=== PATIENT | male | born 1985 | race Caucasian/White ===

== ENCOUNTER 2020-03-14 08:32 | Emergency (ER) | payer BC, SELFPAY ==
[2020-03-14 08:40] VITALS: BP 146/94; PULSE 78; RESP 20; TEMP 36.9; O2SAT 100
--- NOTE | 2020-03-14 08:51 | ED.GENADULT ---
HPI - General Adult General Chief complaint: Skin/Abscess/Foreign Body Stated complaint: sore on back of neck Time Seen by Provider: 03/14/20 08:52 Source: patient and RN notes reviewed Mode of arrival: ambulatory Limitations: no limitations History of Present Illness HPI narrative: 35-year-old male presents with complaints of right lower posterior neck with redness, tenderness, and swelling for the past 2 days. Prid with some relief. Tender to touch. Some drainage. No fever or chills. No abdominal pain. Remains active. The patient reports he have not been diagnosed with COVID-19. The patient reports he is not waiting for the results of a COVID-19 lab test. The patient reports he do not have fever, chills, weakness, fatigue, myalgia, or facial swelling. The patient reports he do not have a new or worsening cough or shortness of breath. Denies chest pain. The patient reports he do not have any rhinorrhea, congestion, sore throat, and abdominal pain. Tolerating po intake well. Denies recent traveling. Denies concerns for COVID-19 or exposures been home since [id number] order except for essential household needs and return home. At this time, patient is not suspected of having COVID-19. Complains of diarrhea, nausea, and vomiting for 1 day. One episode of emesis and diarrhea without abdominal pain. No treatment. Gregg says he was outside having his 5 year-old daughter's birthday libertarian yesterday. History of ulcers. No abdominal pain or cramping. Exacerbating factors consist of eating and drinking. Tolerating po intake well, actively drinking an extra large drink at this visit. LBM this morning at 04:00 which was watery diarrhea. Denies fever or chills. Denies headache, dizziness, back pain, dysuria, and blood in stool. Some parts of this dictation were generated by voice recognition software and may contain typographical and/or grammatical inaccuracies. Related Data Home Medications Medication Instructions Recorded Confirmed meloxicam 15 mg PO TID 03/14/20 03/14/20 Allergies Allergy/AdvReac Type Severity Reaction Status Date / Time No Known Allergies Allergy Verified 03/14/20 09:04 Review of Systems Review of Systems: Narrative: CONSTITUTIONAL: Denies fever, chills, sweats. EYES: Denies visual changes, redness, discharge. ENT: Denies rhinorrhea, congestion, sore throat, otalgia. CARDIOVASCULAR: Denies chest pain, palpitations, edema. RESPIRATORY: Denies dyspnea, wheezing, cough. GASTROINTESTINAL: Denies abdominal pain. Complains of nausea, vomiting, diarrhea. GENITOURINARY: Denies dysuria, hematuria, abnormal discharge. SKIN: Denies rash or itching. Right posterior lower neck with redness, tenderness, swelling, and drainage. MUSCULOSKELETAL: Denies acute back pain, joint pain, or myalgia. NEUROLOGIC: Denies numbness or focal weakness. PSYCHIATRIC: Denies anxiety or depression. All systems reviewed & are unremarkable except as noted in HPI and below. FORMERLY [facility] Past Medical History Medical History Anxiety Chronic back pain History of gastroesophageal reflux (GERD) Stress at home Surgical History Surgical History (Updated 03/14/20 @ 09:25 by LUI Pal) History of endoscopy Noted 3 ulcers History of tonsillectomy History of tympanostomy Family History Family History (Updated 03/14/20 @ 09:25 by LUI Pal) Father Unknown family medical history Mother Diabetes mellitus Grandparent Diabetes mellitus Social History Social History (Updated 03/14/20 @ 09:28 by LUI Pal) Smoking packs per day: 1.5 Smoking cigarettes per day: 30.0 Years smoked: 20 Smoking pack-years: 30.00 Smoking status: Current every day smoker Tobacco type: cigarettes Alcohol intake: current Substance use: current Substance use type: marijuana Last use: Daily Living arrangements: with family Occupation/Education: unemployed Gender identity
== END 2020-03-14 09:10 | disposition home or self-care (01) ==
PROVIDERS: Emergency Provider Nurse Practitioner Family; PCP Internal Medicine
DX: K52.9 Noninfective gastroenteritis and colitis, unspecified (principal); K21.9 Gastro-esophageal reflux disease without esophagitis; F17.210 Nicotine dependence, cigarettes, uncomplicated; R03.0 Elevated blood-pressure reading, without diagnosis of hypertension
CPT/HCPCS: 99203; G0463

== ENCOUNTER 2020-06-28 11:40 | Emergency (ER) | payer BC, SELFPAY ==
--- NOTE | ~2020-06-28 | XR_ITS ---
EXAMINATION: XR finger 4th RT min 2V DATE: 06/28/2020 12:11 INDICATION: Right hand fourth digit injury and pain. TECHNIQUE: 4 views of right hand fourth digit were obtained. COMPARISON: None. FINDINGS: There is a nondisplaced chip avulsion fracture of palmar base of fourth middle phalanx. Anabell nt spaces are normal. IMPRESSION: 1. Nondisplaced chip avulsion fracture of palmar base of fourth middle phalanx. Reviewed, dictated and finalized at location A.
[2020-06-28 11:42] VITALS: BP 114/74; PULSE 73; RESP 16; TEMP 37.1; O2SAT 100
--- NOTE | 2020-06-28 12:03 | ED.UPPEXIN ---
HPI - Extremity Injury (Upper) General Chief Complaint: Extremity Injury, Upper Stated Complaint: Right hand finger injury Time Seen by Provider: 06/28/20 11:50 Source: patient and RN notes reviewed History of Present Illness HPI narrative: Patient is a 35-year-old male who presents the urgent care with complaints of a right finger injury. Patient reports that he hit the fourth digit, bending it backwards, 1 falling down the stairs yesterday. Patient states is become more swollen and difficulty to bend. States that he has been using ibuprofen for the pain. No other acute complaints or injuries from the fall. Denies of hitting his head or any loss of consciousness. No acute distress noted. Patient aware of the plan of care. Some parts of this dictation were generated by voice recognition software and may contain typographical and/or grammatical inaccuracies. Related Data Home Medications Medication Instructions Recorded Confirmed No Home Medications 06/28/20 06/28/20 Allergies Allergy/AdvReac Type Severity Reaction Status Date / Time No Known Allergies Allergy Verified 06/28/20 11:53 Review of Systems Review of Systems: Narrative: CONSTITUTIONAL: Denies fever, chills, or sweats. EYES: Denies visual changes, redness, or discharge. ENT: Denies rhinorrhea, congestion, sore throat, or otalgia. CARDIOVASCULAR: Denies chest pain, palpitations, or edema. RESPIRATORY: Denies cough or dyspnea. GASTROINTESTINAL: Denies abdominal pain, nausea, vomiting, or diarrhea. GENITOURINARY: Denies dysuria or hematuria. SKIN: Denies rash or itching. MUSCULOSKELETAL: Denies back pain, joint pain, or myalgia. NEUROLOGIC: Denies headache, numbness, or weakness. PSYCHIATRIC: Denies anxiety or depression. All other systems reviewed are negative, except as documented in HPI. [facility] Past Medical History Medical History Anxiety Chronic back pain History of gastroesophageal reflux (GERD) Stress at home Surgical History Surgical History (Updated 03/14/20 @ 09:25 by LUI Pal) History of endoscopy Noted 3 ulcers History of tonsillectomy History of tympanostomy Family History Family History (Updated 03/14/20 @ 09:25 by LUI Pal) Father Unknown family medical history Mother Diabetes mellitus Grandparent Diabetes mellitus Social History Social History (Updated 03/14/20 @ 09:28 by LUI Pal) Smoking packs per day: 1.5 Smoking cigarettes per day: 30.0 Years smoked: 20 Smoking pack-years: 30.00 Smoking status: Current every day smoker Tobacco type: cigarettes Alcohol intake: current Substance use: current Substance use type: marijuana Last use: Daily Gender identity (if verbalized by the patient): Male Comments At the time of my signature, I reviewed and agree with the nursing past medical, surgical, social, and family history. There is no relevant family history pertinent to the patient complaint. Exam Narrative: Exam Narrative: GENERAL: This is a well-nourished, well-developed patient, in no apparent distress. HEAD: normocephalic, atraumatic. EYES: PERRL. Sclera clear/white. Vision is grossly intact. EARS: External ears normal NOSE: External nose normal with no obvious nasal discharge, nares without redness, no rhinorrhea. THROAT: Mucous membranes moist NECK: Neck supple SKIN: warm, intact with no suspicious lesions or rash, good texture and turgor. NEURO: awake, alert, and oriented to person, place and time. There were no obvious focal neurologic abnormalities. EXTREMITIES: No clubbing, cyanosis, or edema. No joint tenderness, effusion, or edema noted. No calf tenderness. Negative Homans sign bilaterally. Course Vital Signs Vital signs: Vital Signs Temperature 98.8 F 06/28/20 11:42 Pulse Rate 73 06/28/20 11:42 Respiratory Rate 16 06/28/20 11:42 Blood Pressure 114/74 06/28/20 11:42 Pulse Oximetry 100 06/28/20 11:42
== END 2020-06-28 12:25 | disposition home or self-care (01) ==
PROVIDERS: Emergency Provider Nurse Practitioner Family; PCP Internal Medicine
DX: S62.654A Nondisplaced fracture of middle phalanx of right ring finger, initial encounter for closed fracture (principal); W10.9XXA Fall (on) (from) unspecified stairs and steps, initial encounter; F17.210 Nicotine dependence, cigarettes, uncomplicated; K21.9 Gastro-esophageal reflux disease without esophagitis
CPT/HCPCS: 29130; 73140; 99214; G0463

== ENCOUNTER 2020-12-15 14:27 | Emergency (ER) | payer BC, SELFPAY ==
[2020-12-15 14:34] VITALS: BP 113/74; PULSE 80; RESP 16; TEMP 36.9; O2SAT 98
--- NOTE | 2020-12-15 15:08 | ED.GENADULT ---
HPI - General Adult General Chief complaint: Ear Stated complaint: fatigue Time Seen by Provider: 12/15/20 15:08 Source: patient, RN notes reviewed and old records reviewed Mode of arrival: ambulatory Limitations: no limitations History of Present Illness HPI narrative: 35 year old male presents to [facility] care with complaints of right ear congestion and some fatigue since yesterday. Patient states that he has had a lot of problems with his ears over the years with several surgeries resulting in hearing loss. Patient denies any cough, sore throat, nasal drainage or any known fevers chills or sweats. Patient has not taken anything OTC for a decongestant or any allergy medication. Patient denies any dizziness or any problems with equilibrium. MD complaint: eustachian tube dysfuction Onset (ago): day(s) (1) Location: head Radiation: non-radiation Severity: mild Severity scale (1-10): 1 Quality: aching Pain Consistency: colicky Relieving factors: none Exacerbating factors: none Associated symptoms: denies other symptoms Treatments prior to arrival: none Related Data Allergies Allergy/AdvReac Type Severity Reaction Status Date / Time No Known Allergies Allergy Verified 12/15/20 14:58 Review of Systems Review of Systems: Narrative: CONSTITUTIONAL: Denies fever, chills, or sweats. EYES: Denies visual changes, redness, or discharge. ENT: Denies rhinorrhea, congestion, sore throat, positive for right ear fullness. CARDIOVASCULAR: Denies chest pain, palpitations, or edema. RESPIRATORY: Denies cough or dyspnea. GASTROINTESTINAL: Denies abdominal pain, nausea, vomiting, or diarrhea. GENITOURINARY: Denies dysuria or hematuria. SKIN: Denies rash or itching. MUSCULOSKELETAL: Denies back pain, joint pain, or myalgia. NEUROLOGIC: Denies headache, numbness, or weakness. PSYCHIATRIC: Positive for history of anxiety or depression. All systems reviewed & are unremarkable except as noted in HPI and below PMFSH Past Medical History Medical History Anxiety Chronic back pain Dyslexia History of gastroesophageal reflux (GERD) Stress at home Surgical History Surgical History (Updated 12/15/20 @ 16:51 by Sanna Calvillo NP) History of endoscopy Noted 3 ulcers History of placement of ear tubes History of tonsillectomy History of tympanostomy Family History Family History Father Unknown family medical history Mother Diabetes mellitus Grandparent Diabetes mellitus Social History Social History Smoking packs per day: 1.5 Smoking cigarettes per day: 30.0 Years smoked: 20 Smoking pack-years: 30.00 Smoking status: Current every day smoker Tobacco type: cigarettes Alcohol intake: current Substance use: current Substance use type: marijuana Last use: Daily Gender identity (if verbalized by the patient): Male Comments At time of signature, agree with nursing past medical, surgical, social and family history. There is no relevant family history pertinent to the presenting complaint Exam Narrative: Exam Narrative: GENERAL: Well-appearing, well-nourished, and in no acute distress. HEAD: Normocephalic, atraumatic. EYES: PERRLA and EOMI. ENT: Nares clear, no rhinorrhea or epistaxis. Mucous membranes moist.TM's right ear bulging and pale in appearance, left TM pale with no bulging noted, some scar tissue noted in ears., throat pink with no lesions or tonsils enlargement. NECK: Supple.no lymphadenopathy CHEST: Clear to auscultation. No respiratory distress.SAO2 98% room air HEART: Regular rate and rhythm. No murmur heard. Normal peripheral pulses. ABDOMEN: Soft, nontender, nondistended, normal active bowel sounds. EXTREMITIES: Normal range of motion. No edema. SKIN: Warm, dry, no rash. NEURO: No focal deficits. Alert and oriented x3. Course Vital Signs Vital signs: Vital Signs Temperature 36.9
== END 2020-12-15 15:52 | disposition home or self-care (01) ==
PROVIDERS: Emergency Provider Registered Nurse
DX: H69.83 Other specified disorders of Eustachian tube, bilateral (principal); F17.210 Nicotine dependence, cigarettes, uncomplicated; R48.0 Dyslexia and alexia; K21.9 Gastro-esophageal reflux disease without esophagitis
CPT/HCPCS: 99213; G0463

== ENCOUNTER 2021-03-04 13:01 | Emergency (ER) | payer BC, SELFPAY ==
[2021-03-04 13:08] VITALS: BP 136/76; PULSE 67; RESP 18; TEMP 36.9; O2SAT 99
--- NOTE | 2021-03-04 14:25 | ED.EAR ---
HPI - Ear Problem General Chief complaint: Ear Stated complaint: right ear pain Time Seen by Provider: 03/04/21 14:10 Source: patient Mode of arrival: ambulatory Limitations: no limitations History of Present Illness HPI Narrative: Gregg Mario is a 35 yo male with no PMH who comes with ear pain and lice exposure. Ear pain worsening and feels full x 2 days Related Data Allergies Allergy/AdvReac Type Severity Reaction Status Date / Time No Known Allergies Allergy Verified 03/04/21 13:51 Review of Systems Review of Systems: Narrative: CONSTITUTIONAL: Denies fever, chills, sweats. EYES: Denies visual changes, redness, discharge. ENT: Denies rhinorrhea, congestion, sore throat, R otalgia. CARDIOVASCULAR: Denies chest pain, palpitations, edema. RESPIRATORY: Denies dyspnea, wheezing, cough GASTROINTESTINAL: Denies abdominal pain, nausea, vomiting, diarrhea. GENITOURINARY: Denies dysuria, hematuria, abnormal discharge SKIN: General itching NEUROLOGIC: Denies numbness, or focal weakness. PSYCHIATRIC: Denies anxiety or depression. PMFSH Past Medical History Medical History Anxiety Chronic back pain Dyslexia History of gastroesophageal reflux (GERD) Stress at home Surgical History Surgical History History of endoscopy Noted 3 ulcers History of placement of ear tubes History of tonsillectomy History of tympanostomy Family History Family History Father Unknown family medical history Mother Diabetes mellitus Grandparent Diabetes mellitus Social History Social History Smoking packs per day: 1.5 Smoking cigarettes per day: 30.0 Years smoked: 20 Smoking pack-years: 30.00 Smoking status: Current every day smoker Tobacco type: cigarettes Alcohol intake: current Substance use: current Substance use type: marijuana Last use: Daily Gender identity (if verbalized by the patient): Male Comments At time of signature, I agree with nursing past medical, surgical, social and family history. There is no relevant family history pertinent to the presenting complaint. Exam Narrative: Exam Narrative: GENERAL: This is a well-nourished, well-developed patient, in mild distress. HEAD: normocephalic, atraumatic. EYES: Sclera clear/white. Vision is grossly intact. EARS: External ears normal, auditory canals narrowed and erythema on right , fluid near TM , mild erythema on the left . Hearing grossly intact. NOSE: External nose normal without nasal discharge, nares without redness, no rhinorrhea. THROAT: Mucous membranes moist, posterior pharynx pink mild erythema NECK: Neck supple, non-tender CARDIOVASCULAR: Regular rate and rhythm without murmurs, gallops, or rubs. RESPIRATORY: Clear to auscultation. Breath sounds equal bilaterally. No wheezes, rales, or rhonchi. GASTROINTESTINAL: Abdomen soft, SKIN: warm, intact with no suspicious lesions or rash, good texture and turgor. NEURO: awake, alert, and oriented to person, place and time. There were no obvious focal neurologic abnormalities. Steady gait EXTREMITIES: Normal range of motion. BACK: Nontender without deformity Course Course Emergency Course: Father comes to [facility] for [facility] pain x2 although has long-term ear problem and exposure to lice Started on amoxicillin orally Medrol Dosepak and eardrops along with permethrin (mother agrees to try eardrops instead of oral steroids but is not sure he is able to tolerate them he has a sensory processing issue) Vital Signs Vital signs: Vital Signs Temperature 98.4 F 03/04/21 13:08 Pulse Rate 67 03/04/21 13:08 Respiratory Rate 18 03/04/21 13:08 Blood Pressure 136/76 03/04/21 13:08 Pulse Oximetry 99 03/04/21 13:08 Temperature 98.4 F 03/04/21 13:08 Pulse Rate 67 03/04/21 13:08 Respiratory Rate 18
== END 2021-03-04 14:39 | disposition home or self-care (01) ==
PROVIDERS: Emergency Provider Nurse Practitioner
DX: H66.004 Acute suppurative otitis media without spontaneous rupture of ear drum, recurrent, right ear (principal); Z20.7 Contact with and (suspected) exposure to pediculosis, acariasis and other infestations; F17.210 Nicotine dependence, cigarettes, uncomplicated; R48.0 Dyslexia and alexia; K21.9 Gastro-esophageal reflux disease without esophagitis
CPT/HCPCS: 99213; G0463

== ENCOUNTER 2021-04-22 13:02 | Emergency (ER) | payer BC, SELFPAY ==
[2021-04-22 13:06] VITALS: BP 137/87; PULSE 83; RESP 16; TEMP 37.1; O2SAT 100
--- NOTE | 2021-04-22 13:17 | ED.EAR ---
HPI - Ear Problem General Chief complaint: Ear Stated complaint: right ear w/head pain Time Seen by Provider: 04/22/21 13:17 Source: patient and RN notes reviewed Mode of arrival: ambulatory Limitations: no limitations History of Present Illness HPI Narrative: 36 year old male presents to [facility] care with complaints of right ear pressure for one week with pain for the past 3 days. Patient states that he has swelling in his right ear canal. He reports that he was in [place] last month swimming. Patient reports no fever states that he took Amoxil TID for 3 days. Patient states that he has a long history of ear problems with previous tubes. He states that he has taken some Tylenol and Ibuprofen but that hasn't helped his discomfort. MD Complaint: ear pain and decreased hearing Location: right ear Duration: constant Relieving factors: nothing Context: Reports recent swimming Discharge from ear: Reports no Associated symptoms ear: decreased hearing and external ear tenderness Treatment prior to arrival: oral analgesic Related Data Allergies Allergy/AdvReac Type Severity Reaction Status Date / Time No Known Allergies Allergy Verified 04/22/21 13:11 Review of Systems Review of Systems: Narrative: CONSTITUTIONAL: Denies known fever, chills, or sweats. EYES: Denies visual changes, redness, or discharge. ENT: Denies rhinorrhea, congestion, sore throat, positive right otalgia. CARDIOVASCULAR: Denies chest pain, palpitations, or edema. RESPIRATORY: Denies cough or dyspnea. GASTROINTESTINAL: Denies abdominal pain, nausea, vomiting, or diarrhea. GENITOURINARY: Denies dysuria or hematuria. SKIN: Denies rash or itching. MUSCULOSKELETAL: History of chronic back pain, joint pain, or myalgia. NEUROLOGIC: Denies headache, numbness, or weakness. PSYCHIATRIC: history of anxiety or depression. All systems reviewed & are unremarkable except as noted in HPI and below PMFSH Past Medical History Medical History Anxiety Chronic back pain Dyslexia Ear infection History of gastroesophageal reflux (GERD) Stress at home Surgical History Surgical History History of endoscopy Noted 3 ulcers History of placement of ear tubes History of tonsillectomy History of tympanostomy Family History Family History Father Unknown family medical history Mother Diabetes mellitus Grandparent Diabetes mellitus Social History Social History Smoking packs per day: 1.5 Smoking cigarettes per day: 30.0 Years smoked: 20 Smoking pack-years: 30.00 Smoking status: Current every day smoker Tobacco type: cigarettes Alcohol intake: current Substance use: current Substance use type: marijuana Last use: Daily Gender identity (if verbalized by the patient): Male Comments At time of signature, agree with nursing past medical, surgical, social and family history. There is no relevant family history pertinent to the presenting complaint Exam Narrative: Exam Narrative: GENERAL: Well-appearing, well-nourished, and in no acute distress. HEAD: Normocephalic, atraumatic. EYES: PERRLA and EOMI. ENT: Nares clear, no rhinorrhea or epistaxis. Mucous membranes moist.Right TM red with canal red, swollen and irritated, no drainage noted. Left TM with dull light reflex, throat red with no exudates lesions, or tonsils NECK: Supple.no adenopathy noted CHEST: Clear to auscultation. No respiratory distress.SAO2 100% on room air. HEART: Regular rate and rhythm. No murmur heard. Normal peripheral pulses. ABDOMEN: Soft, nontender, nondistended, normal active bowel sounds. EXTREMITIES: Normal range of motion. No edema. SKIN: Warm, dry, no rash. NEURO: No focal deficits. Alert and oriented x3. Course Vital Signs Vital signs: Vital Signs Temperature 37.1 C 04/22/21 13:06 Pulse Rate
== END 2021-04-22 13:35 | disposition home or self-care (01) ==
PROVIDERS: Emergency Provider Registered Nurse
DX: H65.04 Acute serous otitis media, recurrent, right ear (principal); H60.331 Swimmer's ear, right ear; F17.210 Nicotine dependence, cigarettes, uncomplicated; K21.9 Gastro-esophageal reflux disease without esophagitis
CPT/HCPCS: 99213; G0463

== ENCOUNTER 2023-04-08 18:16 | Emergency (ER) | payer BC, SELFPAY ==
[2023-04-08 18:23] VITALS: BP 137/80; PULSE 57; RESP 16; TEMP 36.9; O2SAT 98
--- NOTE | 2023-04-08 19:06 | ED.SKABFB ---
HPI - Skin/Abscess/Foreign Bdy General Chief complaint: Skin/Abscess/Foreign Body Stated complaint: Rash Time Seen by Provider: 04/08/23 18:57 Source: patient and RN notes reviewed Mode of arrival: ambulatory Limitations: no limitations History of Present Illness HPI narrative: Patient presents today complaining of severely pruritic rash to the bilateral legs, groin, bilateral wrists. He believes he had contact with poison [place]/ [place] /woke approximately 1 week ago and has symptoms have been worsening since that time. He picked a scab on his left bello yesterday, put peroxide on it and since that time his leg has become swollen and tight. He has been using calamine lotion and bleach baths without much relief. Related Data Allergies Allergy/AdvReac Type Severity Reaction Status Date / Time No Known Allergies Allergy Verified 04/22/21 13:11 Review of Systems Review of Systems: CONSTITUTIONAL: Denies body aches, fever, chills, or sweats. EYES: Denies visual changes, redness, or discharge. ENT: Denies rhinorrhea, congestion, sore throat, or otalgia. CARDIOVASCULAR: Denies chest pain, palpitations, or edema. RESPIRATORY: Denies cough or dyspnea. GASTROINTESTINAL: Denies abdominal pain, nausea, vomiting, or diarrhea. GENITOURINARY: Denies dysuria or hematuria. SKIN: + Pruritic rash MUSCULOSKELETAL: Denies back pain, joint pain, or myalgia. NEUROLOGIC: Denies headache, numbness, tingling, or weakness. PSYCH: Denies depression or anxiety. [facility] Past Medical History Medical History Anxiety Chronic back pain Dyslexia Ear infection History of gastroesophageal reflux (GERD) Stress at home Surgical History Surgical History History of endoscopy Noted 3 ulcers History of placement of ear tubes History of tonsillectomy History of tympanostomy Family History Family History Father Unknown family medical history Mother Diabetes mellitus Grandparent Diabetes mellitus Social History Social History Smoking packs per day: 1.5 Smoking cigarettes per day: 30.0 Years smoked: 20 Smoking pack-years: 30.00 Smoking status: Current every day smoker Tobacco type: cigarettes Alcohol intake: current Substance use: current Substance use type: marijuana Last use: Daily Living arrangements: with family Occupation/Education: unemployed Gender identity (if verbalized by the patient): Male Comments At time of signature, I have reviewed and agree with nursing past medical, surgical, social and family history unless otherwise noted. Please see nursing chart for further information. There is no relevant family history pertinent to the presenting complaint Exam Narrative: GENERAL: Well-appearing, well-nourished, and in no acute distress. HEAD: Normocephalic, atraumatic. EYES: EOMI. No redness or drainage. Conjunctivae normal. ENT: Mucous membranes pink and moist. NECK: Normal AROM. CHEST: No respiratory distress. EXTREMITIES: Normal range of motion. No edema. SKIN: Warm, dry. Capillary refill normal. Normal skin turgor. scattered erythematous vesicular rash to the bilateral lower legs and bilateral wrists. Deferred exam to the groin. Patient also has an approximately 1.5 cm scabbed area to the left lower bello with surrounding erythema and tenderness with some honey crusting. NEURO: No focal deficits. Alert and oriented x3. Gait steady. PSYCH: Normal affect. No signs of depression or anxiety. Course Course Level of Care: [facility] Visit Vital Signs Vital signs: Vital Signs Temperature 98.5 F 04/08/23 18:23 Pulse Rate 57 L 04/08/23 18:23 Respiratory Rate 16 04/08/23 18:23 Blood Pressure 137/80 04/08/23 18:23 Pulse Oximetry 98 04/08/23 18:23 Oxygen Delivery Room Air
== END 2023-04-08 19:15 | disposition home or self-care (01) ==
PROVIDERS: Emergency Provider Nurse Practitioner
DX: L25.9 Unspecified contact dermatitis, unspecified cause (principal); L03.116 Cellulitis of left lower limb; F17.210 Nicotine dependence, cigarettes, uncomplicated; K21.9 Gastro-esophageal reflux disease without esophagitis
CPT/HCPCS: 99213; G0463

== ENCOUNTER 2023-05-13 12:03 | Emergency (ER) | payer BC, SELFPAY ==
--- NOTE | ~2023-05-13 | XR_ITS ---
EXAMINATION: XR foot RT min 3V DATE: 05/13/2023 12:27 INDICATION: Right foot pain. TECHNIQUE: 4 views of right foot were obtained. COMPARISON: None. FINDINGS: Bone alignment is normal. No fracture. There is mild osteoarthritis of first metatarsophala ngeal joint. IMPRESSION: 1. Mild osteoarthritis of first metatarsophalangeal joint. Reviewed, dictated and finalized at location A.
[2023-05-13 12:14] VITALS: BP 135/88; PULSE 68; RESP 18; TEMP 36.9; O2SAT 99
--- NOTE | 2023-05-13 12:43 | ED.LOWEXIN ---
HPI - Extremity Injury (Lower) General Chief Complaint: Extremity Injury, Lower Stated Complaint: Right Foot Pain Time Seen by Provider: 05/13/23 12:21 Source: patient and RN notes reviewed Mode of arrival: ambulatory Limitations: no limitations History of Present Illness HPI Narrative: Patient presents today complaining of pain to the dorsum of the right foot x1 week. States he noticed a, ?lump? to this area yesterday. He has not tried any [id number] treatment prior to arrival. Patient states he may have kicked part of a railroad track last week, but otherwise denies any injury or trauma. Patient is also complaining of some redness and scabbed area to the left anterior lower leg that is left over from a poison brooke/cellulitis infection a month ago for which he was treated with Keflex and prednisone. States he does pick at the area and was wondering if he needed additional antibiotics for this. Related Data Allergies Allergy/AdvReac Type Severity Reaction Status Date / Time No Known Allergies Allergy Verified 05/13/23 12:14 Review of Systems Review of Systems: CONSTITUTIONAL: Denies body aches, fever, chills, or sweats. EYES: Denies visual changes, redness, or discharge. ENT: Denies rhinorrhea, congestion, sore throat, or otalgia. CARDIOVASCULAR: Denies chest pain, palpitations, or edema. RESPIRATORY: Denies cough or dyspnea. GASTROINTESTINAL: Denies abdominal pain, nausea, vomiting, or diarrhea. GENITOURINARY: Denies dysuria or hematuria. SKIN: Denies rash, itching. + left lower leg redness MUSCULOSKELETAL: Denies back pain. + right foot pain NEUROLOGIC: Denies headache, numbness, tingling, or weakness. PSYCH: Denies depression or anxiety. [facility], [facility] Past Medical History Medical History Anxiety Chronic back pain Dyslexia Ear infection History of gastroesophageal reflux (GERD) Stress at home Surgical History Surgical History History of endoscopy Noted 3 ulcers History of placement of ear tubes History of tonsillectomy History of tympanostomy Family History Family History Father Unknown family medical history Mother Diabetes mellitus Grandparent Diabetes mellitus Social History Social History Smoking packs per day: 1.5 Smoking cigarettes per day: 30.0 Years smoked: 20 Smoking pack-years: 30.00 Smoking status: Current every day smoker Tobacco type: cigarettes Alcohol intake: current Substance use: current Substance use type: marijuana Last use: Daily Living arrangements: with family Occupation/Education: unemployed Gender identity (if verbalized by the patient): Male Comments At time of signature, I have reviewed and agree with nursing past medical, surgical, social and family history unless otherwise noted. Please see nursing chart for further information. There is no relevant family history pertinent to the presenting complaint Exam Narrative: GENERAL: Well-appearing, well-nourished, and in no acute distress. HEAD: Normocephalic, atraumatic. EYES: EOMI. No redness or drainage. Conjunctivae normal. ENT: Mucous membranes pink and moist. NECK: Normal AROM. CHEST: No respiratory distress. EXTREMITIES: Right foot: 1 cm poorly defined nodule to the lateral dorsum of the right foot that is tender to palpation. No redness, edema, ecchymosis noted. Distal sensation intact. Capillary refill normal. Pedal pulse normal. Full range of motion of the ankle and toes with increased pain with dorsiflexion. Patient also has a 1.5 cm area of erythema with scabbed center to the anterior left lower leg without induration or fluctuance. SKIN: Warm, dry, no rash. Capillary refill normal. Normal skin turgor. NEURO: No focal deficits. Alert and oriented x3. Gait steady. PSYCH: Norm
== END 2023-05-13 12:53 | disposition home or self-care (01) ==
PROVIDERS: Emergency Provider Nurse Practitioner
DX: M79.671 Pain in right foot (principal); L03.116 Cellulitis of left lower limb; F17.210 Nicotine dependence, cigarettes, uncomplicated; F12.90 Cannabis use, unspecified, uncomplicated; F41.9 Anxiety disorder, unspecified; K21.9 Gastro-esophageal reflux disease without esophagitis
CPT/HCPCS: 73630; 99213; G0463

== ENCOUNTER 2024-03-28 18:24 | Emergency (ER) | payer BC, SELFPAY ==
--- NOTE | ~2024-03-28 | XR_ITS ---
XR chest 2V Ordering provider: LUI Christianson History: 39 years Male with . left lat rib pain x2 mos, smoker . Comparison: None. FINDINGS: MEDIASTINUM: The cardiac silhouette is not enlarged. LUNGS: No infiltrates, effusions or pneumothorax. OTHER: No free air under the diaphragm. IMPRESSION: No acute cardiopulmonary pathology. Reviewed, dictated and finalized at location A.
[2024-03-28 18:31] VITALS: BP 140/92; PULSE 83; RESP 16; TEMP 37.4; O2SAT 99
[2024-03-28 18:33] VITALS: BP 140/92; PULSE 83; RESP 16; TEMP 37.4; O2SAT 99
--- NOTE | 2024-03-28 18:49 | ED.URI ---
HPI - URI/Sore Throat General Chief Complaint: Upper Respiratory Infection Stated Complaint: Side Pain Time Seen by Provider: 03/28/24 18:42 Source: patient and RN notes reviewed Mode of arrival: ambulatory Limitations: no limitations History of Present Illness HPI Narrative: Patient presents today complaining of left lateral rib pain that is intermittent x2 months. Patient reports he has a chronic cough due to smoking cigarettes and marijuana, and the rib pain is exacerbated with cough and deep breath. He has tried no [id number] treatment prior to arrival. States he is concerned that he may have lung cancer due to his extensive history of smoking. Related Data Home Medications Medication Instructions Recorded Confirmed No Home Medications 03/28/24 03/28/24 Allergies Allergy/AdvReac Type Severity Reaction Status Date / Time No Known Allergies Allergy Verified 03/28/24 18:31 Review of Systems Review of Systems: CONSTITUTIONAL: Denies body aches, fever, chills, or sweats. EYES: Denies visual changes, redness, or discharge. ENT: Denies rhinorrhea, congestion, sore throat, or otalgia. CARDIOVASCULAR: Denies chest pain, palpitations, or edema. RESPIRATORY: + left lateral rib pain, chronic cough. Denies shortness of breath GASTROINTESTINAL: Denies abdominal pain, nausea, vomiting, or diarrhea. GENITOURINARY: Denies dysuria or hematuria. SKIN: Denies rash, itching, or wounds. MUSCULOSKELETAL: Denies back pain, joint pain, or myalgia. NEUROLOGIC: Denies headache, numbness, tingling, or weakness. PSYCH: Denies depression or anxiety. [facility] Past Medical History Medical History Anxiety Chronic back pain Dyslexia Ear infection History of gastroesophageal reflux (GERD) Stress at home Surgical History Surgical History History of endoscopy Noted 3 ulcers History of placement of ear tubes History of tonsillectomy History of tympanostomy Family History Family History Father Unknown family medical history Mother Diabetes mellitus Grandparent Diabetes mellitus Social History Social History Smoking packs per day: 1.5 Smoking cigarettes per day: 30.0 Years smoked: 20 Smoking pack-years: 30.00 Smoking status: Current every day smoker Tobacco type: cigarettes Alcohol intake: current Substance use: current Substance use type: marijuana Last use: Daily Living arrangements: with family Occupation/Education: unemployed Gender identity (if verbalized by the patient): Male Comments At time of signature, I have reviewed and agree with nursing past medical, surgical, social and family history unless otherwise noted. Please see nursing chart for further information. There is no relevant family history pertinent to the presenting complaint Exam Narrative: GENERAL: Well-appearing, well-nourished, and in no acute distress. HEAD: Normocephalic, atraumatic. EYES: EOMI. No redness or drainage. Conjunctivae normal. ENT: Mucous membranes pink and moist. NECK: Normal AROM. CHEST: No respiratory distress. Clear to auscultation. Left ribs are nontender. No crepitus, step-off, edema noted. HEART: Regular rate and rhythm. No murmur appreciated. EXTREMITIES: Normal range of motion. No edema. SKIN: Warm, dry, no rash. Capillary refill normal. Normal skin turgor. NEURO: No focal deficits. Alert and oriented x3. Gait steady. PSYCH: Normal affect. No signs of depression or anxiety. Course Course Level of Care: Express Care Visit Vital Signs Vital signs: Vital Signs Temperature 99.3 F 03/28/24 18:31 Pulse Rate 83 03/28/24 18:31 Respiratory Rate 16 03/28/24 18:31 Blood Pressure 140/92 H 03/28/24 18:31 Pulse Oximetry 99 03/28/24 18:31 Oxygen Delivery Room Air
== END 2024-03-28 19:35 | disposition home or self-care (01) ==
PROVIDERS: Emergency Provider Nurse Practitioner
DX: R07.81 Pleurodynia (principal); F17.210 Nicotine dependence, cigarettes, uncomplicated; R48.0 Dyslexia and alexia; K21.9 Gastro-esophageal reflux disease without esophagitis
CPT/HCPCS: 71046; 99213; G0463

== ENCOUNTER 2024-09-16 15:18 | Emergency (ER) | payer BC, SELFPAY ==
--- NOTE | ~2024-09-16 | XR_ITS ---
EXAMINATION: XR chest 2V DATE: 09/16/2024 16:08 INDICATION: Cough. TECHNIQUE: Frontal and lateral views of the chest were obtained. COMPARISON: Chest 2 views 03/28/2024 FINDINGS: There is no pneumonia, pleural effusion, or pneumothorax. The heart size is normal. IMPRESSION: 1. No acute cardiopulmonary disease. Reviewed, dictated and finalized at location A. [employer]
[2024-09-16 15:31] VITALS: BP 130/80; PULSE 106; RESP 16; TEMP 36.6; O2SAT 100
--- NOTE | 2024-09-16 15:41 | ED.URI ---
HPI - URI/Sore Throat General Chief Complaint: Upper Respiratory Infection Stated Complaint: slight pain when coughing in chest Time Seen by Provider: 09/16/24 15:41 Source: patient, RN notes reviewed and old records reviewed Mode of arrival: ambulatory Limitations: no limitations History of Present Illness HPI Narrative: 39-year-old male presents to the [facility] reporting cough and congestion. Reports that he does have a slight discomfort when he coughs. Patient is a smoker. Reports he was exposed to pneumonia today. Related Data Home Medications ?Medication ?Instructions ?Recorded ?Confirmed ?Last Taken ?Type No Home Medications 03/28/24 03/28/24 Unknown History Allergies Allergy/AdvReac Type Severity Reaction Status Date / Time No Known Allergies Allergy Verified 03/28/24 18:31 Review of Systems Review of Systems: All systems reviewed & are unremarkable except as noted in HPI and below Constitutional: Constitutional: Reports no additional constitutional complaints ENT: Reports system reviewed and no additional complaints, except as documented Cardiovascular: Cardiovascular: Reports no additional cardiovascular complaints, Denies chest pain and Denies dyspnea Respiratory: Respiratory: Reports as per HPI, Denies chest congestion, Reports cough and Denies dyspnea Gastrointestinal: Gastrointestinal: Reports no additional gastrointestinal complaints, Denies abdominal pain, Denies nausea and Denies vomiting Musculoskeletal: Musculoskeletal: Reports no additional musculoskeletal complaints Integumentary/Breasts: Skin/Breast: Reports system reviewed and no additional complaints, except as docu PMFSH Past Medical History Medical History Ear infection Dyslexia Stress at home Anxiety Chronic back pain History of gastroesophageal reflux (GERD) Surgical History Surgical History History of placement of ear tubes History of tympanostomy History of endoscopy Noted 3 ulcers History of tonsillectomy Family History Family History Father Unknown family medical history Mother Diabetes mellitus Grandparent Diabetes mellitus Social History Social History Smoking packs per day: 1.5 Smoking cigarettes per day: 30.0 Years smoked: 20 Smoking pack-years: 30.00 Smoking status: Current every day smoker Tobacco type: cigarettes Alcohol intake: current Substance use: current Substance use type: marijuana Last use: Daily Living arrangements: with family Occupation/Education: unemployed Gender identity (if verbalized by the patient): Male Comments At the time of my signature, I reviewed and agree with the nursing past medical, surgical, social, and family history. There is no relevant family history pertinent to the patient complaint. Exam Const: General: cooperative, healthy appearing, comfortable, no acute distress, well developed, alert and well nourished Nutritional Appearance: well nourished Orientation/consciousness: patient oriented x3 Limitations: no limitations HENMT: Head: normal to inspection Ears: hearing grossly normal bilaterally, external ears normal, TM's normal bilaterally, EAC's normal, mastoids normal and no periauricular adenopathy Face/Nose/Sinus: Normal external nose present, normal facial exam and face symmetric Face and sinus: normal facial exam and face symmetric Mouth: Yes Normal oral and palatal mucosa present, Yes lip normal and Yes tongue normal Throat: posterior oropharynx normal, uvula midline and no uvular edema Eyes: General: appearance normal, both eyes and all related structures Alignment and Position: alignment normal Periorbital: periorbital findings normal Neck: Neck: normal visual inspection, full ROM, no lymphadenopathy and no meningeal signs Chest: Chest palpation & inspection: normal inspection of the chest Resp: Effort & Inspection: normal respiratory effort and able to speak in complete sentences Auscultation: clear to auscultation bilaterally, no crackles, no rales, no rhonchi and no wheezes Cardio: Rate: regular rate Skin: General skin exam: normal color and no rashes or lesions noted Lesions: no lesions Rashes: no rashes Wounds: no wounds Neuro: General: patient oriented x3, gait normal, tone normal, moves all extremities and no meningeal signs Cognition (Neuro): normal cognition Speech: normal speech Gait exam (Neuro): Normal gait present Extrem: General: normal to inspection, full ROM, capillary refill normal and normal gait Psych: Appearance: grossly normal and well kempt Mental Status: mental status grossly normal Speech and movement: Normal speech and movement present and Clear speech present Affect: normal affect Attitude: cooperative Course Course Level of Care: Express Care Visit Vital Signs Vital signs: Vital Signs Temperature 97.9 F 09/16/24 15:31 Pulse Rate 106 H 09/16/24 15:31 Respiratory Rate 16 12/13/24 15:31 Blood Pressure 130/80 09/16/24 15:31 Pulse Oximetry 100 09/16/24 15:31 Oxygen Delivery Room Air 09/16/24 15:31 Temperature 97.9 F 09/16/24 15:31 Pulse Rate 106 H 09/16/24 15:31 Respiratory Rate 16 09/16/24 15:31 Blood Pressure 130/80 09/16/24 15:31 Pulse Oximetry 100 09/16/24 15:31 Oxygen Delivery Room Air 09/16/24 15:31 Reviewed MDM - URI/Sore Throat MDM Narrative Medical decision making narrative: Patient sitting comfortably in exam room. Nontoxic, vitals stable. Patient in no acute distress. Patient presents with concerns for pneumonia, chest x-ray negative. Patient appropriate for outpatient treatment and follow-up Discharge instructions reviewed with patient, as well as provided in writing per nursing staff. The instructions also include specific and strict return/GO TO THE ER as well as f/u information. All questions have been answered, and the patient deny any further questions with discharge and discharge plan. Some parts of this dictation were generated by voice recognition software and may contain typographical and/or grammatical inaccuracies. Differential Diagnosis Differential diagnosis: Likely upper respiratory infection, viral infection and bronchitis Imaging Data Radiologist's impression: EXAMINATION: XR chest 2V DATE: 09/16/2024 16:08 INDICATION: Cough. TECHNIQUE: Frontal and lateral views of the chest were obtained. COMPARISON: Chest 2 views 03/28/2024 FINDINGS: There is no pneumonia, pleural effusion, or pneumothorax. The heart size is normal. IMPRESSION: 1. No acute cardiopulmonary disease. Critical Care Time Critical Care Time Critical Care Time: No Discharge Plan Discharge Clinical Impression: Upper respiratory infection Qualifiers: URI type: unspecified viral URI Qualified Code(s): J06.9 - Acute upper respiratory infection, unspecified Patient Disposition: Home, Self-Care Condition: Stable Instructions: How to Stop Smoking (ED), Upper Respiratory Infection (ED) Additional Instructions: Your x-ray did not show signs of pneumonia. It is highly recommended that you stop smoking Your symptoms are likely due to a viral illness, which is not treated with antibiotics. Typically viral infections last 7-10 days, can linger for couple of weeks. It is very important to treat your symptoms. Drink plenty of water, Gatorade, Pedialyte, ice pops or Jell-O. -Alternate Tylenol and Motrin per package directions for fever or pain. You can alternate every 4 hours -Antihistamine medication such as Benadryl at night and Zyrtec/Claritin/Mariana during the day can help improve symptoms. -doing daily nasal irrigations can help relieve pressure your sinuses. Things like a Neti pot -Use Flonase twice a day for 5 days then daily to help reduce the inflammation and dry up your sinuses. -You can also use Mucinex. Be sure to drink plenty of water with this medication at least 8 ounces with every dose and it is important to drink 8 to 10 glasses of water per day. Water is a natural decongestant -Eat and drink things that are easy to swallow, like tea or soup, or popsicles. -Oral rinses such as: Salt water gargles and/or may use topical anesthetic (eg. Chloraseptic spray) or lozenges to relieve dryness or throat pain). -Frequent hand washing or hand director of special services is one of the best ways to prevent spread of infection. -Using a vaporizer or humidifier at night will also help thin secretions and help with coughing up phlegm. -Follow up with primary care provider in 7-10 days if condition is not improving - For new or worsening symptoms go directly to the nearest ER Patient Language: Bangladeshi Prescriptions: No Action No Home Medications Follow-up/Referrals: PHYSICIAN,HEAVY DUTY MECHANIC [Primary Care Provider] - Time of Disposition: 16:20
== END 2024-09-16 16:30 | disposition home or self-care (01) ==
PROVIDERS: Emergency Provider Nurse Practitioner
DX: J06.9 Acute upper respiratory infection, unspecified (principal); F17.210 Nicotine dependence, cigarettes, uncomplicated; F12.90 Cannabis use, unspecified, uncomplicated; K21.9 Gastro-esophageal reflux disease without esophagitis; R48.0 Dyslexia and alexia
CPT/HCPCS: 71046; 99213; G0463

== ENCOUNTER 2025-02-14 15:47 | Emergency (ER) | payer OTHER, SELFPAY ==
--- NOTE | ~2025-02-14 | XR_ITS ---
EXAM: XR knee RT min 4V DATE: 02/14/2025 16:15 HISTORY: cardoor injury . COMPARISON: None available. FINDINGS: Normal mineralization. No fracture or dislocation. No lytic or blastic lesion. Joint space s are maintained. No erosion or periosteal change. Small-volume joint fluid. Small varicosities. IMPRESSION: No acute osseous finding in the right knee. Reviewed, dictated and finalized at location K.
[2025-02-14 15:55] VITALS: BP 120/77; PULSE 99; RESP 20; TEMP 37; O2SAT 98
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
== END 2025-02-14 17:00 | disposition home or self-care (01) ==
PROVIDERS: Emergency Provider Nurse Practitioner Family
DX: S80.01XA Contusion of right knee, initial encounter (principal); Y35.893A Legal intervention involving other specified means, suspect injured, initial encounter; R22.41 Localized swelling, mass and lump, right lower limb; K21.9 Gastro-esophageal reflux disease without esophagitis
CPT/HCPCS: 73564; 99213; G0463